=== PATIENT | female | born 1955 | race Caucasian/White ===

== ENCOUNTER → 2020-04-21 09:34 | Outpatient (BNVA) | payer BC, SELFPAY | PROVIDERS: Family Provider Family Medicine; PCP Family Medicine; Visit Provider Family Medicine | DX: E78.5 Hyperlipidemia, unspecified (principal) | CPT/HCPCS: 80053; 80061; 85025 ==

== ENCOUNTER 2020-11-15 07:13 | Outpatient (CLI) | payer OTHER, SELFPAY ==
--- NOTE | 2020-11-15 07:18 | MM_ITS ---
WS: [id number] BILATERAL DIGITAL SCREENING MAMMOGRAPHY WITH CAD CLINICAL INFORMATION: SCREENING HISTORY: Screening mammogram. No current complaints. COMPARISON: TECHNIQUE: Bilateral CC and MLO views. FINDINGS: Scattered fibroglandular densities bilaterally. No suspicious focal mass, asymmetry, calcifications, or architectural distortion. No evidence of malignancy. A few incidental calcifications. MM/[place] [id number] IMPRESSION: BI-RADS: 2-Benign FOLLOW UP: 1 Year Follow-up Recommend return to annual screening mammography.
== END 2020-11-15 07:14 | disposition home or self-care (01) ==
LOC: RADSHAW 07:14
PROVIDERS: PCP Family Medicine; Visit Provider Nurse Practitioner Women's Health
DX: Z12.31 Encounter for screening mammogram for malignant neoplasm of breast (principal)
CPT/HCPCS: 77067

== ENCOUNTER → 2021-01-10 09:06 | Outpatient (BNVA) | payer OTHER, SELFPAY | PROVIDERS: PCP Family Medicine; Visit Provider Family Medicine | DX: E78.5 Hyperlipidemia, unspecified (principal); L57.0 Actinic keratosis | CPT/HCPCS: 80061 ==

== ENCOUNTER 2021-07-18 09:42 | Outpatient (CLI) | payer OTHER, SELFPAY ==
--- NOTE | 2021-07-18 15:15 | XR_ITS ---
WS: [id number] DEXA (DUAL ENERGY X-RAY ABSORPTIOMETRY) Bone mineral density was performed using a [employer] machine. HISTORY: Z78.0 - Asymptomatic menopausal state COMPARISON: None available. Lumbar spine BMD (L1-L4): 0.973 g/cm2 T score: -1.7 Z score: -0.4 Total hip BMD: Left: 0.948 g/cm2. T score: -0.5 Z score: 0.5 Right: 0.929 g/cm2. T score: -0.6 Z score: 0.4 10 year probability of a major osteoporotic fracture is 29%. XR/XR DEXA axial skeleton* [id number] IMPRESSION: OSTEOPENIA based upon the WHO classification for females.
== END 2021-07-18 09:43 | disposition home or self-care (01) ==
PROVIDERS: PCP Family Medicine; Visit Provider Nurse Practitioner Women's Health
DX: Z78.0 Asymptomatic menopausal state (principal); M85.80 Other specified disorders of bone density and structure, unspecified site
CPT/HCPCS: 77080

== ENCOUNTER → 2021-08-26 10:25 | Outpatient (BNVA) | payer OTHER, SELFPAY | PROVIDERS: PCP Family Medicine; Visit Provider Family Medicine | DX: Z20.822 Contact with and (suspected) exposure to COVID-19 (principal) | CPT/HCPCS: 87635 ==

== ENCOUNTER → 2022-01-09 10:04 | Outpatient (BNVA) | payer MEDICARE, SELFPAY | PROVIDERS: PCP Family Medicine; Visit Provider Podiatrist Foot & Ankle Surgery | DX: M19.071 Primary osteoarthritis, right ankle and foot (principal); M79.671 Pain in right foot | CPT/HCPCS: 73630; 99204 ==

== ENCOUNTER 2022-01-20 08:21 | Outpatient (CLI) | payer MEDICARE, SELFPAY ==
--- NOTE | 2022-01-20 08:28 | MM_ITS ---
WS: [id number] BILATERAL SCREENING TOMOSYNTHESIS DIGITAL MAMMOGRAM WITH CAD HISTORY: Z12.39 - Encounter for other screening for malignant neoplasm. COMPARISON: 11/15/2020, 019 Bilateral CC and MLO views submitted. Computer aided detection analyzed. Breast composition: There are scattered areas of fibroglandular density. No suspicious masses, microc alcifications or architectural distortion. MM/[place] [id number] IMPRESSION: BI-RADS: 1-Negative FOLLOW UP: 1 Year Follow-up
== END 2022-01-20 08:22 | disposition home or self-care (01) ==
LOC: RADSHAW 08:22
PROVIDERS: PCP Family Medicine; Visit Provider Family Medicine
DX: Z12.31 Encounter for screening mammogram for malignant neoplasm of breast (principal)
CPT/HCPCS: 77063; 77067

== ENCOUNTER 2022-03-22 13:56 | Outpatient (CLI) | payer MEDICARE, SELFPAY | END 2022-03-22 13:57 | disposition home or self-care (01) | LOC: SPT 14:02 | PROVIDERS: PCP Family Medicine; Visit Provider Podiatrist Foot & Ankle Surgery | DX: Z46.89 Encounter for fitting and adjustment of other specified devices (principal); M19.071 Primary osteoarthritis, right ankle and foot; M19.072 Primary osteoarthritis, left ankle and foot | CPT/HCPCS: 97760; 99214; L3030 ==

== ENCOUNTER → 2022-06-07 10:28 | Outpatient (BNVA) | payer MEDICARE, SELFPAY | PROVIDERS: PCP Family Medicine; Visit Provider Family Medicine | DX: Z00.00 Encounter for general adult medical examination without abnormal findings (principal); E78.5 Hyperlipidemia, unspecified; M85.80 Other specified disorders of bone density and structure, unspecified site | CPT/HCPCS: 80053; 80061; 85025 ==

== ENCOUNTER → 2022-08-04 06:10 | Day surgery (SDC) | payer MEDICARE, SELFPAY ==
[2022-08-03 08:47] VITALS: BMI 30.2
[2022-08-04] VITALS (8 sets, daily range): BP systolic 148–168; BP diastolic 74–91; PULSE 64–123; RESP 14–20; TEMP 36.1–36.4; O2SAT 95–100
[2022-08-04] MEDS: sodium chloride 0.9% 1,000 ML 30 ML IV (06:56)
[2022-08-04] MEDS: CELEcoxib 200 mg Capsule 400 MG PO (06:57)
[2022-08-04] MEDS: gabapentin 300 mg Capsule PO (06:57)
--- NOTE | 2022-08-04 07:13 | P.ANESASSM_ITS ---
Pre-Anesthetic Assessment Height/Weight: Height 1.57 m Weight 74.843 kg Temp Pulse Resp BP Pulse Ox O2 Del Method 97.6 F 64 18 168/89 95 08/04/22 06:42 08/04/22 06:42 08/04/22 06:42 08/04/22 06:42 08/04/22 06:42 08/04/22 06:57 Preop Diagnosis: Right hallux rigidus Operation Date: 08/04/22 07:50 Proposed Procedures p Right first metatarsal phalangeal joint fusion versus cheilectomy 55647 [id number] M20.21(Right) - Elieser Torres DPM Familial anesthetic complications: None Was Beta Nina taken within 24 hours: N/A Was Clonidine taken within 24 hours: N/A Last intake: Intake Last Liquid Date 08/03/22 Last Liquid Time 20:00 Last Solid Date 08/03/22 Last Solid Time 20:00 Social No alcohol and No tobacco Exam alert, oriented x 3, clear to auscultation bilaterally and regular rate & rhythm Airway Mallampati: Class III Dentition: full Metabolic Hyperlipidemia Anesthetic Plan ASA status: 2 Anesthesia: MAC Risk of > 500 ml blood loss (7ml/kg in children): No Medications/Allergies Home Medications Medication Instructions Recorded Confirmed Last Taken Type sole supports #1 ea 01/09/22 06/07/22 Unknown Rx raloxifene 60 mg tablet 60 mg PO DAILY #90 tabs 03/03/22 08/03/22 08/03/22 Rx meloxicam 15 mg tablet 15 mg PO DAILY #30 tabs 03/22/22 08/03/22 07/30/22 Rx atorvastatin 20 mg tablet See Rx Instructions .Route 06/08/22 08/03/22 08/03/22 Rx .COMPLEX #90 tabs hydrocodone 10 mg-acetaminophen 1 tab PO Q6H 7 days #28 tabs 08/03/22 Unknown Rx 325 mg tablet Allergies Allergy/AdvReac Type Severity Reaction Status Date / Time codeine Allergy Mild ALGY-Rash Verified 08/03/22 08:45 Current Medications Generic Name Dose Route Start Last Admin Trade Name Freq PRN Reason Stop Dose Admin Sodium Chloride 1,000 mls @ 30 mls/hr 08/04/22 06:30 08/04/22 06:56 Sodium Chloride 0.9% IV 08/05/22 06:29 30 mls/hr .Q24H KONRAD Administration PFSH Anesthesia Medical History Actinic keratosis Dyslipidemia No pertinent past medical history neghx: htn,dm,thyroid,dvt/pe Osteopenia Post-menopausal Surgical History History of hand surgery left wrist and hand-- the hand required surgical repair Hx of hysterectomy (~2004) due to fibroid tumors--- ovaries spared-- performed in [place] Family History Mother Stroke Hypertension Hypercholesteremia Breast cancer dx age 88 Father Heart disease Hypercholesteremia Brother Heart disease Grandmother Breast cancer Paternal--- dx age unknown Family/Other Breast cancer Paternal Aunt-- dx age unknown Sister Ovarian cancer dx age 28 Cervical cancer dx age 27 Social History Smoking and tobacco status: never smoked Data Anesthesia Cardiac Studies: No Data to Display
--- NOTE | 2022-08-04 07:51 | P.HP_ITS ---
Providers/Chief Complaint Primary Care Provider: Larisa Ojeda MD Chief Complaint: M20.21 History of Present Illness Bernie Baker is a 66 year old female presents with complaints of right great toe joint pain that has been progressive over the course of many years. Denies any specific trauma or injury. Describes the nature of the pain as arthritic that becomes more of a sharp stabbing pain and debilitating with increased activities. She has been treating the pain with conservative measures consisting of supportive shoes, anti-inflammatories, has been taking meloxicam daily for several months, she has performed at home physical therapy consisting of range of motion exercises and is also trialed topical Voltaren gel and prefabricated orthotics without relief. Would like to discuss surgical options. Patient denies any subjective nausea, vomiting, fever, chills, shortness of breath or chest pain. Review of Systems General: Reports: 10 or more systems reviewed and unremarkable except in HPI and below Const: Denies: fever(s) or chills Eyes: Denies: change in vision Card: Denies: chest pain or palpitations Resp: Denies: dyspnea or productive cough GI: Denies: abdominal pain, nausea or vomiting : Denies: flank pain Musc: Reports: extremity pain Skin/Breast: Denies: rash Neuro: Denies: numbness in extremities, sensory changes or frequent falls Psych: Denies: suicidal ideation Christopher/Lymph: Denies: easy bruising Medications/Allergies Home Medications Medication Instructions Recorded Confirmed Last Taken Type sole supports #1 ea 01/09/22 06/07/22 Unknown Rx raloxifene 60 mg tablet 60 mg PO DAILY #90 tabs 03/03/22 08/03/22 08/03/22 Rx meloxicam 15 mg tablet 15 mg PO DAILY #30 tabs 03/22/22 08/03/22 07/30/22 Rx atorvastatin 20 mg tablet See Rx Instructions .Route 06/08/22 08/03/22 08/03/22 Rx .COMPLEX #90 tabs hydrocodone 10 mg-acetaminophen 1 tab PO Q6H 7 days #28 tabs 08/03/22 Unknown Rx 325 mg tablet Allergies Allergy/AdvReac Type Severity Reaction Status Date / Time codeine Allergy Mild ALGY-Rash Verified 08/03/22 08:45 PFSH PFSH: Medical History Actinic keratosis Dyslipidemia No pertinent past medical history neghx: htn,dm,thyroid,dvt/pe Osteopenia Post-menopausal Surgical History History of hand surgery left wrist and hand-- the hand required surgical repair Hx of hysterectomy (~2004) due to fibroid tumors--- ovaries spared-- performed in [place] Family History Mother Stroke Hypertension Hypercholesteremia Breast cancer dx age 88 Father Heart disease Hypercholesteremia Brother Heart disease Grandmother Breast cancer Paternal--- dx age unknown Family/Other Breast cancer Paternal Aunt-- dx age unknown Sister Ovarian cancer dx age 28 Cervical cancer dx age 27 Social History Smoking and tobacco status: never smoked Vital Signs Weight: Weight last 48 hrs Weight 165 lb Physical Exam Narrative: EXAM NARRATIVE: Patient is alert and oriented ?3 and in no acute distress.? The following is a focused bilateral lower extremity exam. VASCULAR: Dorsalis pedis and posterior tibial arteries palpable +2.? Capillary refill time less than 3 seconds to the distal hallux bilaterally. Calf is supple and nontender proximally and distally.? Edema to the right first metatarsal phalangeal joint.? Pedal hair growth present. NEUROLOGICAL: Epicritic and protopathic sensations grossly intact to the lower extremities.? +2 Achilles tendon reflex noted bilaterally.? Negative Tinel sign upon percussion of lower extremity nerves. DERMATOLOGICAL: Lower extremity skin is well-hydrated, normal texture and turgor.? There are no open sores or lesions noted to the lower extremities.? No erythema or ecchymosis present to the bilateral legs and feet. MUSCULOSKELETAL: Tenderness to palpation of the right first metatarsophalangeal joint.? First metatarsal phalangeal joint bilaterally is 20 degrees of dorsiflexion with crepitus and osseous and range of motion as well as 10 degrees of plantarflexion bilaterally.? The right is painful, left is asymptomatic.? Hallux valgus deformity bilaterally this is mild and not track bound.? Osseous prominence palpable at the right first metatarsophalangeal joint dorsally. CARDIOVASCULAR: S1, S2, normal rate, normal rhythm. Dorsalis pedis and posterior tibial arteries palpable. LUNGS: Clear to auscltation, no use of acessory muscles, no crackles or wheezes. Feet w/LR Ind Top: 1. Osseous end range of motion with dorsiflexion significantly decreased, 10 degrees. A&P Assessment and plan (1) Hallux rigidus, right foot: (2) Right foot pain: Plan Pleasant 66-year-old female presents with hallux rigidus to the right unresponsive to conservative care. X-rays on file shows joint space narrowing at the right first metatarsophalangeal joint, subchondral sclerosis, osteophytes and squaring off of the first metatarsal head all right first metatarsophalangeal joint.? Hallux valgus is mild.right great toe joint pain that has been progressive over the course of many years. Denies any specific tr auma or injury. Describes the nature of the pain as arthritic that becomes more of a sharp stabbing pain and debilitating with increased activities. She has been treating the pain with conservative measures consisting of supportive shoes, anti-inflammatories, has been taking meloxicam daily for several months, she has performed at home physical therapy consisting of range of motion exercises and is also trialed topical Voltaren gel and prefabricated orthotics without relief. Would like to discuss surgical options. Discussed both joint preserving and joint destructive options. Patient wishing to pursue joint preserving procedures at this time with the understanding that down the road she may require joint replacement versus arthrodesis. Discussed benefits and risks of cheilectomy and this is something she would like to proceed with 08/04/2022 outpatient. I reviewed at length with the patient, the risks, potential complications, benefits, alternatives, expectations, and typical outcomes associated with the surgery. The risks and potential complications were explained in detail, including but not limited to infection, wound dehiscence or soft tissue complications, bleeding and hematoma, chronic edema, neuritis or nerve damage producing numbness or chronic pain, CRPS, failure to relieve pain or worsening pain, thick / painful / unsightly scar, limited motion / stiffness, malposition, delayed union, malunion, or nonunion, fracture, reaction to implants, anesthetic complications, venous thromboembolism, and deformity recurrence. I discussed the notion of no regrets with the patient as it pertains to complications and outcomes. The patient seemed to understand the nature of the proposed care and required convalescence. They asked appropriate questions, answered to their satisfaction. They are aware no guarantees can be made as to a satisfactory outcome and they understand there may be other possible unforeseen complications or outcomes not listed here that will be treated accordingly if they arise. There were no written or implied guarantees given to the patient. They gave informed consent to proceed. Right cheilectomy, 08/04/2022, outpatient, local MAC, nj, supine, 30 minutes. Coding Level of Care Code Acute Documentation Engineer for Chg Fwd Diagnoses Hallux rigidus, right foot M20.21 Right foot pain M79.671
--- NOTE | 2022-08-04 07:52 | W.PM.OPSUD ---
Surgery/Procedure H&P Update DATE OF PROCEDURE: August 04, 2022 DATE H&P PERFORMED: 08/04/22 CHANGES TO PREVIOUS DOCUMENTATION: None PREOP DIAGNOSIS: Right hallux rigidus PLANNED PROCEDURE: Operation Date: 08/04/22 07:50 Proposed Procedures p Right first metatarsal phalangeal joint fusion versus cheilectomy [id number] M20.21(Right) - Elieser Torres DPM
[2022-08-04] MEDS: ceFAZolin 2,000 MG in sodium chloride 0.9% (plus) 50 ML 100 MG IV (08:20)
--- NOTE | 2022-08-04 08:43 | P.OP_ITS ---
Operative Report Date of procedure: August 04, 2022 Pre-op diagnosis: Preop Diagnosis Right hallux rigidus Post-op diagnosis: Right hallux rigidus Post-op findings: Improved dorsiflexion right first metatarsal phalangeal joint intraoperatively Procedure done: Right cheilectomy. CPT code 94319 Implants: 3-0 Vicryl, 4-0 Vicryl, 4-0 nylon Specimens removed/disposition: None Pathology: None Surgeon: Elieser Torres D.P.M. Keeler Polygraph Operator: Peg Estimated blood loss: 5 20 IV fluids: none Urine output: None Complications: None Findings: Improved dorsiflexion intraoperatively at 50 degrees of dorsiflexion at right first metatarsal phalangeal joint. Brief History: Pleasant 66-year-old female presents with hallux rigidus to the right unresponsive to conservative care.? X-rays on file shows joint space narrowing at the right first metatarsophalangeal joint, subchondral sclerosis, osteophytes and squaring off of the first metatarsal head all right first metatarsophalangeal joint.? Hallux valgus is mild.right great toe joint pain that has been progressive over the course of many years.? Denies any specific tr auma or injury.? Describes the nature of the pain as arthritic that becomes more of a sharp stabbing pain and debilitating with increased activities.? She has been treating the pain with conservative measures consisting of supportive shoes, anti-inflammatories, has been taking meloxicam daily for several months, she has performed at home physical therapy consisting of range of motion exercises and is also trialed topical Voltaren gel and prefabricated orthotics without relief.? Would like to discuss surgical options.? Discussed both joint preserving and joint destructive options.? Patient wishing to pursue joint preserving procedures at this time with the understanding that down the road she may require joint replacement versus arthrodesis.? Discussed benefits and risks of cheilectomy and this is something she would like to proceed with 08/04/2022 outpatient.? I reviewed at length with the patient, the risks, potential complications, benefits, alternatives, expectations, and typical outcomes associated with the surgery. The risks and potential complications were explained in detail, including but not limited to infection, wound dehiscence or soft tissue complications, bleeding and hematoma, chronic edema, neuritis or nerve damage producing numbness or chronic pain, CRPS, failure to relieve pain or worsening pain, thick / painful / unsightly scar, limited motion / stiffness, malposition, delayed union, malunion, or nonunion, fracture, reaction to implants, anesthetic complications, venous thromboembolism, and deformity recurrence.? I discussed the notion of no regrets with the patient as it pertains to complications and outcomes. The patient seemed to understand the nature of the proposed care and required convalescence. They asked appropriate questions, answered to their satisfaction. They are aware no guarantees can be made as to a satisfactory outcome and they understand there may be other possible unforeseen complications or outcomes not listed here that will be treated accordingly if they arise. There were no written or implied guarantees given to the patient. They gave informed consent to proceed. Procedure: Under mild sedation the patient was brought to the operating room and remained on the gurney in supine position. A timeout was performed. Anesthesia was then administered by the anesthesia service. Local anesthesia was then injected by myself consisting of a 2-1 mixture 0.5% Marcaine and Exparel total of 30 cc in a right Navarro block fashion. Well-padded pneumatic tourniquet applied to the right high calf. The right lower extremity was then scrubbed, prepped and draped utilizing normal aseptic technique. Attention was directed to the dorsal medial aspect of the right first metatarsal phalangeal joint where a linear longitudinal incision was made with a #15 blade through skin with dissection carried down through subcutaneous tissue to the layer of periosteum and joint capsule utilizing a combination of blunt and sharp technique. Care was taken to retract and preserve neurovascular and tendinous structures. All bleeders were ligated and cauterized as necessary. Extensor tendons were retracted laterally. The joint capsulotomy was performed and the head of the first metatarsal base of the proximal phalanx of the right first metatarsal phalangeal joint were freed from their soft tissue and capsular attachments and contoured back to their normal anatomy utilizing a sagittal saw, power bur and hand rasp. Dorsal bossing and squaring off of the first metatarsal head was contoured to a rounded smooth first metatarsal and base of the proximal phalanx. The incision was flushed with copious amounts of sterile saline solution. Smooth range of motion appreciated intraoperatively without catching. Increased dorsiflexion appreciated intraoperatively with 50 degrees of dorsiflexion appreciated at the right first metatarsal phalangeal joint. The incision was then irrigated with copious amounts of sterile skin solution followed by closure consisting of joint capsule reapproximated by 3-0 Vicryl. Subcutaneous tissue reapproximated by 4-0 Vicryl and skin with 4-0 nylon. The incision was dressed with Adaptic, sterile 4 x 4, Kerlix and Coban. Cam boot was applied to the right lower extremity. Tourniquet was then deflated and a prompt hyperemic response was noted to the distal digits of the right foot. Patient tolerated the procedure and anesthesia well and was transferred to the PACU with vital signs stable and vascular status intact. Following a period of postop monitoring patient will be discharged home. May be weightbearing as tolerated with a cam boot. Was given at home care instructions, follow-up and my cell phone number to contact with any postoperative questions or concerns.
--- NOTE | 2022-08-04 12:36 | ANE.PACU2 ---
Inpatient post-anesthesia follow up: Airway intact: Yes Vital signs: Temperature 97.2 F Pulse Rate 84 Respiratory Rate 17 Blood Pressure 151/89 Pulse Oximetry 98 Oxygen Delivery Me thod Room Air Oxygen Flow Rate Fraction of Inspir ed Oxygen Hydration adequate: Yes Nausea and vomiting: No Pain level: 1 Mental status: Baseline
== END | disposition home or self-care (01) ==
PROVIDERS: PCP Family Medicine; Visit Provider Podiatrist Foot & Ankle Surgery
PROC: (CPT 28750; principal; 2022-08-04 07:40)
DX: M20.21 Hallux rigidus, right foot (principal); E78.5 Hyperlipidemia, unspecified
CPT/HCPCS: 28289; C9290; J0690; J1100; J2405; J2704; J3010; J3490; J7030

== ENCOUNTER → 2022-08-17 14:19 | Outpatient (BNVA) | payer MEDICARE, SELFPAY | PROVIDERS: PCP Family Medicine; Visit Provider Podiatrist Foot & Ankle Surgery | DX: Z98.890 Other specified postprocedural states (principal); M20.21 Hallux rigidus, right foot | CPT/HCPCS: 73630; 99024 ==

== ENCOUNTER → 2022-08-31 13:50 | Outpatient (BNVA) | payer MEDICARE, SELFPAY | PROVIDERS: PCP Family Medicine; Visit Provider Podiatrist Foot & Ankle Surgery | DX: Z98.890 Other specified postprocedural states (principal); M20.21 Hallux rigidus, right foot | CPT/HCPCS: 73630; 99024 ==

== ENCOUNTER → 2022-09-06 13:55 | Outpatient (BNVA) | payer MEDICARE, SELFPAY | PROVIDERS: PCP Family Medicine; Visit Provider Podiatrist Foot & Ankle Surgery | DX: M20.21 Hallux rigidus, right foot (principal); Z98.890 Other specified postprocedural states | CPT/HCPCS: 99024 ==

== ENCOUNTER → 2022-09-21 12:51 | Outpatient (BNVA) | payer MEDICARE, SELFPAY | PROVIDERS: PCP Family Medicine; Visit Provider Podiatrist Foot & Ankle Surgery | DX: Z98.890 Other specified postprocedural states (principal); M20.21 Hallux rigidus, right foot | CPT/HCPCS: 73630; 99024 ==

== ENCOUNTER 2023-01-24 10:34 | Outpatient (CLI) | payer MEDICARE, SELFPAY ==
--- NOTE | 2023-01-24 10:48 | MM_ITS ---
WS: [id number] BILATERAL SCREENING DIGITAL TOMOSYNTHESIS MAMMOGRAM WITH CAD HISTORY: Screening. COMPARISON: 01/20/2022 and 11/15/2020 Bilateral CC and MLO views with tomosynthesis and synthetic mammography submitted. Computer aided det ection analyzed. Breast composition: There are scattered areas of fibroglandular density. No suspicious masses, microc alcifications or architectural distortion. Benign bilateral calcifications. MM/[place] [id number] IMPRESSION: BI-RADS: 2-Benign FOLLOW UP: 1 Year Follow-up
== END 2023-01-24 10:35 | disposition home or self-care (01) ==
LOC: RAD 10:38
PROVIDERS: PCP Family Medicine; Visit Provider Nurse Practitioner Women's Health
DX: Z12.39 Encounter for other screening for malignant neoplasm of breast (principal)
CPT/HCPCS: 77063; 77067

== ENCOUNTER 2023-07-19 12:38 | Outpatient (CLI) | payer MEDICARE, SELFPAY ==
--- NOTE | 2023-07-19 13:00 | XR_ITS ---
WS: [email or web address] SCREENING DEXA SCAN LIA CLINICAL INFORMATION: Z78.0 - Asymptomatic menopausal state COMPARISON: 2020 FINDINGS: The L1-L4 bone mineral density measures 1.043 g/cm2. This corresponds to a T score score of -1.1 and Z score of 0.1. Left femoral neck bone mineral density measures 0.973 g/cm2. This corresponds to a T score of -0.3 an d Z score of 0.8. Right femoral neck bone mineral density measures 0.941 g/cm2. This corresponds to a T score -0.5of an d Z score of 0.5. Mean femoral neck bone mineral density measures 0.957 g/cm2. This corresponds to a T score of -0.4 an d Z score of 0.6. IMPRESSION: Osteopenia lumbar spine. Normal bone mineralization femoral necks. Patient's FRAX calculated 10 year probability for major osteoporotic fracture is 27.6% and osteoporot ic hip fracture is 3.1%. Bone mineral density lumbar spine increased 7.2% Bone mineral density femoral necks increased 2.0%
== END 2023-07-19 12:39 | disposition home or self-care (01) ==
LOC: RAD 12:38
PROVIDERS: PCP Family Medicine; Visit Provider Nurse Practitioner Women's Health
DX: Z78.0 Asymptomatic menopausal state (principal); M85.80 Other specified disorders of bone density and structure, unspecified site
CPT/HCPCS: 77080

== ENCOUNTER → 2023-09-24 11:30 | Outpatient (BNVA) | payer MEDICARE, SELFPAY | PROVIDERS: PCP Family Medicine; Visit Provider Family Medicine | DX: M19.90 Unspecified osteoarthritis, unspecified site (principal); M85.80 Other specified disorders of bone density and structure, unspecified site; E78.5 Hyperlipidemia, unspecified; Z00.00 Encounter for general adult medical examination without abnormal findings | CPT/HCPCS: 80053; 80061; 85025 ==

== ENCOUNTER → 2024-01-25 09:39 | Outpatient (BNVA) | payer MEDICARE, SELFPAY | PROVIDERS: PCP Family Medicine; Visit Provider Nurse Practitioner Family | DX: D48.5 Neoplasm of uncertain behavior of skin (principal); L82.0 Inflamed seborrheic keratosis; S50.862A Insect bite (nonvenomous) of left forearm, initial encounter; X58.XXXA Exposure to other specified factors, initial encounter; L82.1 Other seborrheic keratosis; D22.5 Melanocytic nevi of trunk; L81.4 Other melanin hyperpigmentation; Z80.8 Family history of malignant neoplasm of other organs or systems | CPT/HCPCS: 11102; 17110; 99203 ==

== ENCOUNTER 2024-01-28 10:17 | Outpatient (CLI) | payer MEDICARE, SELFPAY ==
--- NOTE | 2024-01-28 10:30 | MM_ITS ---
WS: [id number] BILATERAL SCREENING DIGITAL TOMOSYNTHESIS MAMMOGRAM WITH CAD HISTORY: Z12.31 - Encounter for screening mammogram for malignant ... COMPARISON: 01/24/2023, 01/20/2022, 08/04/2019 Bilateral CC and MLO views with tomosynthesis and synthetic mammography submitted. Computer aided det ection analyzed. Breast composition: There are scattered areas of fibroglandular density. No suspicious masses, microc alcifications or architectural distortion. Benign calcification RIGHT breast. MM/[place] [id number] IMPRESSION: BI-RADS: 2-Benign FOLLOW UP: 1 Year Follow-up
== END 2024-01-28 10:18 | disposition home or self-care (01) ==
LOC: RAD 10:17
PROVIDERS: PCP Family Medicine; Visit Provider Nurse Practitioner Women's Health
DX: Z12.31 Encounter for screening mammogram for malignant neoplasm of breast (principal)
CPT/HCPCS: 77063; 77067

== ENCOUNTER → 2024-02-04 11:23 | Outpatient (BNVA) | payer MEDICARE, SELFPAY | PROVIDERS: PCP Family Medicine; Visit Provider Nurse Practitioner Family | DX: T14.8XXA Other injury of unspecified body region, initial encounter (principal); X58.XXXA Exposure to other specified factors, initial encounter; L82.1 Other seborrheic keratosis; D22.5 Melanocytic nevi of trunk; L81.4 Other melanin hyperpigmentation; Z80.8 Family history of malignant neoplasm of other organs or systems | CPT/HCPCS: 17110; 99213 ==

== ENCOUNTER → 2024-03-17 12:36 | Outpatient (BNVA) | payer MEDICARE, SELFPAY | PROVIDERS: PCP Family Medicine; Visit Provider Nurse Practitioner Family | DX: L82.0 Inflamed seborrheic keratosis (principal); S70.361A Insect bite (nonvenomous), right thigh, initial encounter; X58.XXXA Exposure to other specified factors, initial encounter; D22.5 Melanocytic nevi of trunk | CPT/HCPCS: 17110; 99213 ==

== ENCOUNTER → 2024-07-22 11:11 | Outpatient (BNVA) | payer MEDICARE, SELFPAY | PROVIDERS: PCP Family Medicine; Visit Provider Nurse Practitioner Family | DX: L82.0 Inflamed seborrheic keratosis (principal); L73.8 Other specified follicular disorders; L81.4 Other melanin hyperpigmentation | CPT/HCPCS: 17110; 99213 ==

== ENCOUNTER → 2024-09-29 10:00 | Outpatient (BNVA) | payer MEDICARE, SELFPAY | PROVIDERS: PCP Family Medicine; Visit Provider Family Medicine | DX: E78.5 Hyperlipidemia, unspecified (principal) | CPT/HCPCS: 80053; 80061; 85025 ==

== ENCOUNTER → 2025-01-22 09:46 | Outpatient (BNVA) | payer MEDICARE, SELFPAY | PROVIDERS: PCP Family Medicine; Visit Provider Nurse Practitioner Family | DX: S70.361A Insect bite (nonvenomous), right thigh, initial encounter (principal); D18.01 Hemangioma of skin and subcutaneous tissue; L81.4 Other melanin hyperpigmentation; L82.0 Inflamed seborrheic keratosis; L29.89 Other pruritus; R20.9 Unspecified disturbances of skin sensation; R20.8 Other disturbances of skin sensation; R23.8 Other skin changes; L53.8 Other specified erythematous conditions; L57.0 Actinic keratosis; X32.XXXA Exposure to sunlight, initial encounter; X58.XXXA Exposure to other specified factors, initial encounter | CPT/HCPCS: 17000; 17110; 99213 ==

== ENCOUNTER 2025-07-20 12:37 | Outpatient (CLI) | payer MEDICARE, SELFPAY ==
--- NOTE | 2025-07-20 13:00 | MM_ITS ---
WS: [email or web address] BILATERAL 3D TOMOSYNTHESIS DIGITAL SCREENING MAMMOGRAPHY WITH CAD CLINICAL INFORMATION: Z12.31 - Encounter for screening mammogram for malignant ... HISTORY: Screening mammogram. No current complaints. COMPARISON: 2023 TECHNIQUE: Bilateral CC and MLO views. FINDINGS: Scattered fibroglandular densities bilaterally. No suspicious focal mass, asymmetry, calcifications, or architectural distortion. No evidence of malignancy. A few incidental punctate calcifications. MM/MM [facility] tomosynthesis [id number] IMPRESSION: DENSITY: There are scattered areas of fibroglandular density. BI-RADS: 2 - Benign. FOLLOW UP: 1 Year Follow-up Recommend return to annual screening mammography.
--- NOTE | 2025-07-20 13:30 | XR_ITS ---
WS: [email or web address] DEXA (DUAL ENERGY X-RAY ABSORPTIOMETRY) Bone mineral density was performed using a [employer] machine. HISTORY: N95.8 - Other specified menopausal and perimenopausal dis... COMPARISON: 07/19/2023 Lumbar spine BMD (L1-L4): 1.026 g/cm2 T score: -1.3 Z score: 0.0 Total hip BMD: Left: 0.964 g/cm2. T score: -0.3 Z score: 0.8 Right: 0.906 g/cm2. T score: -0.8 Z score: 0.4 10 year probability of a major osteoporotic fracture is 29.2%. Compared to the prior study from 07/19/2023. Lumbar spine bone mineral density has decreased by 1.6%. Bilateral hips bone mineral density has decreased by 2.3%. XR/XR DEXA axial skeleton* [id number] IMPRESSION: OSTEOPENIA based upon the WHO classification for females. Significant decrease in bone mineral density within the hips since the prior . No significant change within the lumbar spine.
== END 2025-07-20 12:38 | disposition home or self-care (01) ==
PROVIDERS: PCP Family Medicine; Visit Provider Nurse Practitioner Women's Health
DX: Z12.31 Encounter for screening mammogram for malignant neoplasm of breast (principal); Z13.820 Encounter for screening for osteoporosis; M85.80 Other specified disorders of bone density and structure, unspecified site; R92.323 Mammographic fibroglandular density, bilateral breasts; R92.1 Mammographic calcification found on diagnostic imaging of breast
CPT/HCPCS: 77063; 77067; 77080

== ENCOUNTER 2025-09-07 12:31 | Outpatient (RCR) | payer MEDICARE, SELFPAY | END 2025-09-14 07:03 | disposition home or self-care (01) | LOC: SPT 12:31 | PROVIDERS: PCP Family Medicine; Visit Provider Nurse Practitioner Women's Health | DX: M19.90 Unspecified osteoarthritis, unspecified site (principal) | CPT/HCPCS: 97161 ==